=== PATIENT | female | born 1975 ===

== ENCOUNTER 2019-02-13 18:53 | Emergency (ER) | payer BC ==
--- NOTE | 2019-02-13 20:45 | Cat Scan Report ---
PROCEDURE: CT HEAD/BRAIN WO CON TECHNIQUE: Computerized tomography of the head was performed without contrast material. CT DOSE LENGTH PRODUCT: 927.8 mGycm HISTORY: headache COMPARISONS: . FINDINGS: Unenhanced CT of the brain was performed and demonstrates no acute intracranial hemorrhage, extra-axial fluid collection, midline shift or mass effect. The ventricles and basal cisterns are no t effaced. The mastoid air cells and middle ears appear clear. There is no evidence of acute sinusitis. IMPRESSION: No acute intracranial hemorrhage All CT scans at this location are performed using dose modulation techniques as appropriate to a perf ormed exam including the following: automated exposure control, adjustment of the mA and/or kV accord ing to patient size (this includes techniques or standardized protocols for targeted exams where dose is matched to indication/reason for exam, i.e.extremities or head; use of imaging [id number] This document is electronically signed by James Beauchamp MD., February 13 2019 08:43:09 PM ET
[2019-02-13] MEDS ORDERED: TYLENOL PO ONE (20:54)
[2019-02-13] MEDS ORDERED: BENADRYL IV ONE (20:54)
[2019-02-13] MEDS ORDERED: DECADRON IV ONE (20:54)
[2019-02-13] MEDS ORDERED: REGLAN IV ONE (20:54)
[2019-02-13] MEDS ORDERED: BENADRYL PO ONE (21:27)
[2019-02-13] MEDS ORDERED: REGLAN PO ONE (21:27)
[2019-02-13 21:29] LABS: Basophils % (Auto) 0.6 % (0.0-1.8); Eosinophils # (Auto) 0.1 K/mm3 (0.0-0.4); Eosinophils % (Auto) 1.8 % (0.0-4.3); Hematocrit 38.3 % (30.3-42.9); Hemoglobin 13.4 gm/dl (10.1-14.3); Lymphocytes # (Auto) 1.6 K/mm3 (1.2-5.4); Lymphocytes % (Auto) 21.6 % (13.4-35.0); Mean Corpuscular HGB Conc 35 % (30-34); Mean Corpuscular Volume 93 fl (79-97); Monocytes # (Auto) 0.7 K/mm3 (0.0-0.8); Monocytes % (Auto) 9.8 % (0.0-7.3); Platelet Count 190 K/mm3 (140-440); Red Cell Distribution Width 13.2 % (13.2-15.2)
[2019-02-13 22:05] LABS: Alanine Aminotransferase 38 units/L (7-56); Albumin 3.9 g/dL (3.9-5); BUN/Creatinine Ratio 26; Blood Urea Nitrogen 13 mg/dL (7-17); Hemolysis Index 5
--- NOTE | 2019-02-13 22:45 | Emergency Department Report ---
ED General Adult HPI - General Chief complaint: Headache Stated complaint: HEADACHE Time Seen by Provider: 02/13/19 20:52 Source: patient, family Mode of arrival: Ambulatory Limitations: Language Barrier - History of Present Illness Initial comments: Patient 43-year-old female hx of sciatica and headaches, who presents for headache 5/10 right parietal 1 week is associated photophobia and mild nausea patient exacerbated by movement and activity pain was relieved by nothing patient notes tingling to the right lower extremity for the past 2 days prompting ed visit, there is no fever or chills is no nausea vomiting no lightheadedness or dizziness 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 denies: confusion, chest pain, cough, fever/chills, seizure, shortness of breath, syncope, weakness Treatments Prior to Arrival: none - Related Data Previous Rx's Medication Instructions Recorded Last Taken Type Acetaminophen [Acetaminophen TAB] 1,000 mg PO Q6HR PRN #30 tablet 02/13/19 Unknown Rx Diclofenac 1% [Diclofenac 1% 1 applic TP QID PRN #1 tube 02/13/19 Unknown Rx topical gel] Metoclopramide [Reglan] 10 mg PO Q6H PRN #30 tablet 02/13/19 Unknown Rx diphenhydrAMINE [Benadryl CAP] 25 mg PO Q6HR PRN #30 capsule 02/13/19 Unknown Rx Allergies Allergy/AdvReac Type Severity Reaction Status Date / Time Penicillins Allergy Unknown Verified 02/13/19 19:00 ED Review of Systems ROS: Stated complaint: HEADACHE Other details as noted in HPI Constitutional: denies: chills, fever Eyes: denies: eye pain, eye discharge, vision change ENT: denies: ear pain, throat pain Respiratory: denies: cough, shortness of breath, wheezing Cardiovascular: denies: chest pain, palpitations Endocrine: no symptoms reported Gastrointestinal: denies: abdominal pain, nausea, diarrhea Genitourinary: denies: urgency, dysuria, discharge Musculoskeletal: myalgia (right lower extreme). denies: back pain, joint swelling, arthralgia Skin: denies: rash, lesions Neurological: denies: headache, weakness, paresthesias Psychiatric: denies: anxiety, depression Hematological/Lymphatic: denies: easy bleeding, easy bruising ED Past Medical Hx - Past Medical History Previous Medical History?: Yes Additional medical history: Sciatica - Surgical History Past Surgical History?: No - Social History Smoking Status: Never Smoker Substance Use Type: None - Medications Home Medications: Home Medications Medication Instructions Recorded Confirmed Last Taken Type Acetaminophen [Acetaminophen TAB] 1,000 mg PO Q6HR PRN #30 tablet 02/13/19 Unknown Rx Diclofenac 1% [Diclofenac 1% 1 applic TP QID PRN #1 tube 02/13/19 Unknown Rx topical gel] Metoclopramide [Reglan] 10 mg PO Q6H PRN #30 tablet 02/13/19 Unknown Rx diphenhydrAMINE [Benadryl CAP] 25 mg PO Q6HR PRN #30 capsule 02/13/19 Unknown Rx ED Physical Exam - General Limitations: Language Barrier General appearance: alert, in no apparent distress - Head Head exam: Present: atraumatic, normocephalic - Eye Eye exam: Present: normal appearance, PERRL, EOMI Pupils: Present: normal accommodation - ENT ENT exam: Present: normal orophraynx, mucous membranes moist, TM's normal bilaterally, normal external ear exam - Neck Neck exam: Present: normal inspection, full ROM, lymphadenopathy. Absent: tenderness, thyromegaly - Expanded Neck Exam Expanded Neck exam: Absent: tenderness, midline deformity, anterior neck swelling, thyroid mass, carotid bruit, tracheal deviation - Respiratory Respiratory exam: Present: normal lung sounds bilaterally. Absent: respiratory distress, wheezes, stridor, chest wall tenderness - Cardiovascular Cardiovascular Exam: Present: regular rate, normal rhythm, normal heart sounds. Absent: systolic murmur, diastolic murmur, rubs, gallop - GI/Abdominal GI/Abdominal exam: Present: soft, normal bowel sounds. Absent: distended, tenderness, guarding, rebound, rigid, bruit, hernia - Rectal Rectal exam: Present: deferred - Extremities Exam Extremities exam: Present: normal inspection - Back Exam Back exam: Present: normal inspection, full ROM, tenderness, muscle spasm, paraspinal tenderness. Absent: CVA tenderness (R), CVA tenderness (L), vertebral tenderness, rash noted - Expanded Back Exam Expanded Back exam: Sciatic Notch Tenderness: Right, Positive Straight Leg Raise: Right, Negative Straight Leg Raising: Left - Neurological Exam Neurological exam: Present: alert, oriented X3, CN II-XII intact, normal gait, reflexes normal. Absent: motor sensory deficit - Expanded Neurological Exam Expanded Neurological exam: Present: protecting the airway. Absent: memory loss-recent event, ataxia, tremor Patient oriented to: Present: person, place, time Speech: Present: fluid speech Cranial nerves: EOM's Intact: Normal, Gag Reflex: Normal, Tongue Deviation: Normal, Nystagmus: Normal, Facial Sensation: Normal Cerebellar function: Finger to Nose: Normal, Heel to Gallo: Normal, Romberg: Normal Upper motor neuron: Colby Neglect: Normal, Pronator Drift: Normal, Babinski Sign: Normal, Sensory Extinction: Normal Sensory exam: Upper Extremity Light Touch: Normal, Upper Extremity Pin Prick: Normal, Upper Extremity Temperature: Normal, UE 2 Point Discrimination: Normal, Lower Extremity Light Touch: Normal, Lower Extremity Pin Prick: Normal, Lower Extremity Temperature: Normal, LE 2 Point Discrimination: Normal Motor strength exam: RUE: 5, LUE: 5, RLE: 5, LLE: 5 DTR: bicep (R): 2+, bicep (L): 2+, ankle (R): 2+, ankle (L): 2+ Best Eye Response (Pride): (4) open spontaneously Best Motor Response (Aamir): (6) obeys commands Best Verbal Response (Aamir): (5) oriented Aamir Total: 15 - Psychiatric Psychiatric exam: Present: normal affect, normal mood - Skin Skin exam: Present: warm, dry, intact, normal color. Absent: rash ED Course Vital Signs 02/13/19 02/13/19 19:10 21:26 Temperature 98.5 F Pulse Rate 109 H Respiratory 16 20 Rate Blood Pressure 154/90 O2 Sat by Pulse 99 Oximetry ED Medical Decision Making - Lab Data Result diagrams: 02/13/19 21:04 02/13/19 21:04 - Radiology Data Radiology results: report reviewed, image reviewed PROCEDURE: CT HEAD/BRAIN WO CON TECHNIQUE: Computerized tomography of the head was performed without contrast material. CT DOSE LENGTH PRODUCT: 927.8 mGycm HISTORY: headache COMPARISONS: . FINDINGS: Unenhanced CT of the brain was performed and demonstrates no acute intracranial hemorrhage, extra-axial fluid collection, midline shift or mass effect. The ventricles and basal cisterns are not effaced. The mastoid air cells and middle ears appear clear. There is no evidence of acute sinusitis. IMPRESSION: No acute intracranial hemorrhage All CT scans at this location are performed using dose modulation techniques as appropriate to a performed exam including the following: automated exposure control, adjustment of the mA and/or kV according to patient size (this includes techniques or standardized protocols for targeted exams where dose is matched to indication/reason for exam, i.e.extremities or head; use of imaging [id number] This document is electronically signed by James Beauchamp MD., February 13 2019 08:43:09 PM ET Transcribed By: MELISSA Dictated By: JAMES BEAUCHAMP MD Electronically Authenticated By: JAMES BEAUCHAMP MD Signed Date/Time: 02/13/192044 DD/ 21 TD/TT: 02/13/192021 - Medical Decision Making pt with hx of occasional headache, scitica to low back headache relieved to 0/10 , there is no n/v no dizziness no n/v pt is a/o x 3 ambulatory with steady gait plan tylenol, reglan, benadryl follow up with pcp in 2-3 days pt given referral to [facility] will follow up in 2-3 days , ct head normal, labs normal there is no sinus headache, neuro exam is normal , pt dc'd to home in stable condition at this time. Critical care attestation.: If time is entered above; I have spent that time in minutes in the direct care of this critically ill patient, excluding procedure time. ED Disposition Clinical Impression: Headache Qualifiers: Headache type: unspecified Headache chronicity pattern: acute headache Intractability: not intractable Qualified Code(s): R51 - Headache Sciatica Qualifiers: Laterality: right Qualified Code(s): M54.31 - Sciatica, right side Disposition: DC-01 TO HOME OR SELFCARE Is pt being admited?: No Does the pt Need Aspirin: No Condition: Stable Instructions: Lumbar Radiculopathy (ED), Acute Headache (ED) Prescriptions: Acetaminophen [Acetaminophen TAB] 1,000 mg PO Q6HR PRN #30 tablet PRN Reason: Headache diphenhydrAMINE [Benadryl CAP] 25 mg PO Q6HR PRN #30 capsule PRN Reason: Headache Diclofenac 1% [Diclofenac 1% topical gel] 1 applic TP QID PRN #1 tube PRN Reason: pain Metoclopramide [Reglan] 10 mg PO Q6H PRN #30 tablet PRN Reason: headache Referrals: [facility] [place] [Outside] - 3-5 Days MACK LAGUNAS MD [Staff Physician] - 3-5 Days Forms: Work/School Release Form(ED) Time of Disposition: 23:47
--- NOTE | 2019-02-14 00:29 | XRay Report ---
PROCEDURE: XR CHEST ROUTINE 2V TECHNIQUE: PA and lateral chest radiographs were obtained. HISTORY: dizziness COMPARISONS: None. FINDINGS: Heart: Normal. Mediastinum/Vessels: Normal. Lungs/Pleural space: Normal. Bony thorax: No acute osseous abnormality. IMPRESSION: No focal consolidation or effusion. This document is electronically signed by Estelita Nixon MD., February 14 2019 12:27:30 AM ET
[2019-02-14 01:30] LABS: Bilirubin,Urine NEG (Negative); Blood,Urine NEG (Negative); Color,Urine Straw (Yellow); Protein,Urine <15 mg/dL mg/dL (Negative); Urobilinogen,Urine < 2.0 mg/dL (<2.0); WBC,Urine < 1.0 /HPF (0.0-6.0)
[2019-02-14 01:34] VITALS: BP 114/77
[2019-02-14 01:41] LABS: HCG Qualitative,Urine Negative (Negative)
== END 2019-02-14 01:52 | disposition home or self-care (01) ==
LOC: ED 18:53
DX: R51 Headache (principal); H53.149 Visual discomfort, unspecified; M54.41 Lumbago with sciatica, right side; R11.2 Nausea with vomiting, unspecified; Z79.899 Other long term (current) drug therapy; Z88.0 Allergy status to penicillin
CPT/HCPCS: 36415; 70450; 71046; 80053; 81001; 81025; 84484; 85025; 96374; 96375; 99284; J1100; J1200; J2765